=== PATIENT | male | born 2000 | race Caucasian/White ===

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

== ENCOUNTER 2023-12-06 18:16 | Emergency (ER) | payer BC ==
[~2023-12-06] VITALS: Ht 160 cm; Wt 74.8 kg
[2023-12-06 18:27] VITALS: BP_SYST 138; PULSE 86; RESP 20; TEMP 98.4; O2SAT 100
== END 2023-12-06 19:20 | disposition left against medical advice (07) ==
LOC: SED 18:16
DX: R10.31 Right lower quadrant pain (principal); Z53.21 Procedure and treatment not carried out due to patient leaving prior to being seen by health care provider
CPT/HCPCS: 99281